=== PATIENT | female | born 1960 | race Two or more races ===

== ENCOUNTER → 2020-02-08 | Day surgery (SDC) | payer OTHER ==
[~2020-02-08] MED LIST: ALTACE5 MG PO; CLONAZEPAM0.5 MG PO; DICY20TA PO; JANUMET XR 50-1 EAC1 PO; LANTUS SOL100 UNIT/1; NEURONTIN300 MG PO; ORENCIA50 MG/0.4; PERCOCET 5-3251 EACH PO; PREVACID15 MG PO; SINGULAIR10 MG PO; SYNTHROID50 MCG PO; ZOLOFT100 MG PO; ZOVIRAX400 MG PO
== END | disposition home or self-care (01) ==
LOC: ADM 02-01 11:00 → AMB-ENDOS 07:27
PROVIDERS: ATTEND Surgery
DX: K63.5 Polyp of colon (principal); Z20.828 Contact with and (suspected) exposure to other viral communicable diseases

== ENCOUNTER 2020-02-10 07:55 | Day surgery (SDC) | payer OTHER ==
[~2020-02-10 07:55] MED LIST changes: -NEURONTIN300 MG PO; -PERCOCET 5-3251 EACH PO
[2020-02-11] MEDS ORDERED: PERCOCET 5-3251 EACH PO (11:49)
[2020-02-11] MEDS ORDERED: NEURONTIN300 MG PO (11:49)
== END 2020-02-11 08:00 | disposition home or self-care (01) ==
LOC: CIR.AMB 07:55 → O/R 16:00 → SURH 16:00 → O/R 18:16 → SURH 18:16 → CIR.AMB 02-11 08:00 → SURH 02-11 13:19
PROVIDERS: ATTEND Surgery
DX: N81.6 Rectocele (principal)